=== PATIENT | female | born 1990 | race Caucasian/White ===

== ENCOUNTER 2022-10-13 11:48 | Emergency (ER) | payer OTHER ==
[~2022-10-13] VITALS: Ht 172.7 cm; Wt 84.8 kg
[2022-10-13 12:24] VITALS: BP 150/54
[2022-10-13] MEDS ORDERED: ACET-10509 PO (13:46)
[2022-10-13] MEDS ORDERED: PROM118S5 PO (13:46)
[2022-10-13] MEDS ORDERED: TAM75 PO (13:46)
--- NOTE | 2022-10-13 13:59 | NUR ---
FLU AND COVID SWABS COLLECTED AND WALKED TO LAB
--- NOTE | 2022-10-13 14:02 | NUR ---
Patient discharged with v/s stable. Written and verbal after care instructions ABOUT URI AND INFLUENZA given and explained. Patient alert, oriented and verbalized understanding of instructions. Ambulatory with steady gait. All questions addressed prior to discharge. ID band removed. Patient advised to follow up with PMD. Rx of TYLENOL EXTRA STRENGTH, PROMETHAZINE AND TAMIFLU given. Patient educated on indication of medication including possible reaction and side effects. Opportunity to ask questions provided and answered.
== END 2022-10-13 14:02 | disposition home or self-care (01) ==
LOC: MED 11:48
DX: J06.9 Acute upper respiratory infection, unspecified (principal); Z20.822 Contact with and (suspected) exposure to COVID-19
CPT/HCPCS: 99283

== ENCOUNTER 2023-08-07 15:11 | Emergency (ER) | payer OTHER ==
[~2023-08-07] VITALS: Ht 172.7 cm; Wt 94.0 kg
[~2023-08-07 15:11] MED LIST: ACET-10509 PO; PROM118S5 PO; TAM75 PO
[2023-08-07 15:23] VITALS: BP 146/71; PULSE 67; RESP 20; TEMP 97.8; O2SAT 98
[2023-08-07] MEDS ORDERED: IMO2 PO (16:07)
[2023-08-07] MEDS ORDERED: ACET-10509 PO (16:07)
[2023-08-07] MEDS ORDERED: IBUP-2809 PO (16:07)
[2023-08-07 16:17] VITALS: BP 143/69; PULSE 65; RESP 20; TEMP 97.8; O2SAT 98
== END 2023-08-07 16:17 | disposition home or self-care (01) ==
LOC: MED 15:11
DX: R19.7 Diarrhea, unspecified (principal); Z79.899 Other long term (current) drug therapy
CPT/HCPCS: 99282